=== PATIENT | female | born 1960 | race Caucasian/White ===

== ENCOUNTER 2017-02-18 01:18 | Emergency (ER) | payer MEDICAID ==
[~2017-02-18] VITALS: Ht 162.6 cm; Wt 77.1 kg
[~2017-02-18 01:18] MED LIST: FENO160T8 PO; HYDR25TA4 PO; LEVO125T6 PO; OMEP20CA5 PO; PAR20T PO; POT10T PO; SIMV-8 PO
[2017-02-18 02:01] LABS: Basophils # (auto) 0.1 uL; Basophils % (auto) 0.7 % (0.0-2.0); DEFINITIVE VIEW TRANSMISSION; Eosinophils # (auto) 1.7 uL; Eosinophils % (auto) 12.6 % (0.0-7.0); Hematocrit 42.7 % (36.0-46.0); Lymphocytes # (auto) 4.6 uL; Lymphocytes % (auto) 33.7 % (10.0-50.0); Mean Corpuscular Hemoglobin 28.8 pg (28.0-32.0); Mean Corpuscular Hgb Conc. 32.8 g/dL (32.0-36.0); Mean Corpuscular Volume 87.8 fL (80.0-100.0); Mean Platelet Volume 9.9 fL (7.4-10.4); Monocytes # (auto) 0.8 uL; Monocytes % (auto) 6.1 % (0.0-12.0); Neutrophils # (auto) 6.4 uL; Neutrophils % (auto) 46.9 % (37.0-80.0); Platelet Count (auto) 310 10^3/uL (140-450); Red Cell Distribution Width 13.7 % (11.6-16.0); White Blood Cell 13.7 10^3/uL (4.4-10.8)
[2017-02-18 02:23] LABS: Anion Gap 12 (5-15); Aspartate Aminotransferase 34 U/L (15-37); BUN/Creatinine Ratio 23.4; Blood Urea Nitrogen 18 mg/dL (7-18); Calcium 9.1 mg/dL (8.5-10.1); Carbon Dioxide 24 mmol/L (21-32); Chloride 104 mmol/L (98-107); GFR African American 100 mL/min; GFR Non-African American 83 mL/min; Glucose 109 mg/dL (74-106); Potassium 4.3 mmol/L (3.5-5.1); Sodium 140 mmol/L (136-145)
[2017-02-18 02:28] LABS: Alkaline Phosphatase 65 U/L (45-117); Bilirubin, Total 0.2 mg/dL (0.2-1.0); Total Protein 6.9 g/dL (6.4-8.2)
[2017-02-18 05:03] LABS: Urine Bilirubin Negative (Negative); Urine Blood Negative /uL (Negative); Urine Color Yellow (Yellow); Urine Glucose Normal (Normal); Urine Granular Cast FEW /lpf (0); Urine Ketone Negative (Negative); Urine Nitrite Negative (Negative); Urine RBC 1 /hpf (0 - 4); Urine Squamous Epithelial Cell FEW /hpf (<5); Urine Urobilinogen Normal (Negative); Urine pH 5.5 (5.0-8.0)
[2017-02-18] MEDS ORDERED: ACETAMINOPHEN 500 MG TAB PO ONE ×2 (05:15→05:45)
[2017-02-18] MEDS ORDERED: CYCL1TAB18 PO (08:00)
[2017-02-18] MEDS ORDERED: METF-314 PO (08:00)
[2017-02-18] MEDS ORDERED: BENA10TA3 PO (08:00)
[2017-02-18] MEDS ORDERED: BUPR100T14 PO (08:00)
[2017-02-18] MEDS ORDERED: ASPI81TA27 PO (08:00)
[2017-02-18] MEDS ORDERED: VITA400T4 PO (08:02)
[2017-02-18] MEDS ORDERED: CARISOPRODOL 350 MG TAB PO ONE (09:00)
[2017-02-18 09:25] VITALS: BP 179/92
[2017-02-18] MEDS ORDERED: cloNIDine HCL 0.1 MG TAB PO ONE (09:45)
== END 2017-02-18 10:54 | disposition home or self-care (01) ==
LOC: ER 01:18 → EDBD 01:18 → ER 10:54
DX: M25.512 Pain in left shoulder (principal); I10 Essential (primary) hypertension; N39.0 Urinary tract infection, site not specified; R41.82 Altered mental status, unspecified; M79.672 Pain in left foot; E07.9 Disorder of thyroid, unspecified; Z79.82 Long term (current) use of aspirin; Z86.73 Personal history of transient ischemic attack (TIA), and cerebral infarction without residual deficits; Z88.6 Allergy status to analgesic agent; Z88.2 Allergy status to sulfonamides; Z79.899 Other long term (current) drug therapy
CPT/HCPCS: 36415; 70450; 73030; 73630; 80053; 80307; 80329; 81001; 84484; 85025; 93005; 93971